=== PATIENT | male | born 1940 | race Caucasian/White ===

== ENCOUNTER 2017-08-12 21:51 | Observation (INO) | payer SELFPAY ==
[2017-08-12] MEDS ORDERED: NS 0.9% 1000 ML*IV.FLUID IV ONE (22:18)
[2017-08-12] MEDS ORDERED: Acetaminophen TAB* 325 MG PO ONE (22:18)
[2017-08-12] MEDS ORDERED: Vancomycin(*) 1,000 MG in NS 0.9% 250 ML* 250 ML IVPB ONE (22:38)
[2017-08-12] MEDS ORDERED: Piperacillin/Tazobac ADVAN(*) 3.375 GM in NS 0.9% 100 ML* 100 ML IVPB ONE (22:39)
[2017-08-12] MEDS ORDERED: NS 0.9% 100 ML* 100 ML ONE (23:19)
[2017-08-12 23:23] LABS: Hematocrit 42 % (42-52); Hemoglobin 14.4 g/dl (14.0-18.0); Mean Corpuscular HGB Conc 34 g/dl (31-36); Mean Corpuscular Hemoglobin 32 pg (27-31); Mean Corpuscular Volume 93 fL (80-94); Mean Platelet Volume 8 um3 (7.4-10.4); Red Blood Count 4.54 10^6/ul (4.0-5.4); Red Cell Distribution Width 14 % (10.5-15); White Blood Count 9.8 10^3/ul (3.5-10.8)
[2017-08-12 23:36] LABS: Albumin 3.6 g/dL (3.2-5.2); C Reactive Protein 61.86 mg/L (< 5.00); Calcium 8.5 mg/dL (8.6-10.3); EGFR African American 80.7 (>60); EGFR Non-African American 62.8 (>60); Potassium 3.9 mmol/L (3.5-5.0); Total Bilirubin 0.5 mg/dL (0.2-1.0); Total Protein 6.6 g/dL (6.4-8.9)
[2017-08-12 23:38] LABS: Troponin I 0.01 ng/mL (<0.04)
[2017-08-12] MEDS ORDERED: Levofloxacin 750 MG IVPREMIX(* 750 MG/150 ML BAG IVPB ONE (23:56)
[2017-08-13 00:02] LABS: Urine Bacteria Absent (Absent); Urine Bilirubin Negative (Negative); Urine Glucose Negative (Negative); Urine Nitrite Negative (Negative)
--- NOTE | 2017-08-13 00:38 | ED ---
Bell Arevalo Thomas, scribed for Jamar Fajardo MD on 08/12/17 at 2220 . HPI Febrile Illness - HPI Summary HPI Summary: The pt is a 77 y/o M presenting to the ED c/o generalized malaise, fever, body tingles, cough with brown sputum production, and urinary frequency for the last 3-4 days. The patients symptoms have been intermittent. Pt denies vomiting , diarrhea, CP, pleuritic CP, SOB, back pain, and any pains. The patient lives alone. - History of Current Complaint Chief Complaint: EDGeneral Time Seen by Provider: 08/12/17 22:10 Hx Obtained From: Patient Onset/Duration: Started Days Ago - 3-4, Still Present Timing: Intermittent Current Severity: Moderate Pain Intensity: 0 Pain Scale Used: 0-10 Numeric Aggravating Factors: Nothing Alleviating Factors: Nothing Associated Signs and Symptoms: Other: - Generalized malaise, fever, body tingles, cough with brown sputum production, and urinary frequency; NEGATIVE: vomiting, diarrhea, CP, pleuritic CP, SOB, back pain, and any pains - Allergy/Home Medications Allergies/Adverse Reactions: Allergies Allergy/AdvReac Type Severity Reaction Status Date / Time Aspirin [ASA] Allergy Unknown Unknown Verified 08/12/17 23:21 Reaction Details Penicillins Allergy Hives Verified 08/12/17 23:42 Sulfa Antibiotics Allergy Unknown Verified 08/12/17 23:21 Reaction Details Home Medications: Home Medications Atenolol TAB* [Tenormin TAB* 25 MG] 25 mg PO DAILY 08/13/17 [History] Carbidopa/Levodop 10/100 MG(*) [Sinemet 10/100 TAB(*)] 1 tab PO TID 08/13/17 [ History] Levothyroxine TAB* [Synthroid TAB*] 100 mcg PO DAILY 08/13/17 [History] Pramipexole TAB* [Mirapex TAB*] 0.125 mg PO BEDTIME 08/13/17 [History] Rivaroxaban TAB(*) [Xarelto 10 mg (*)] 10 mg PO DAILY 08/13/17 [History] Valsartan TAB* [Diovan TAB*] 08/13/17 [History] busPIRone TAB* [Buspar TAB*] 5 mg PO BID 08/13/17 [History] PMH/Surg Hx/FS Hx/Imm Hx Previously Healthy: No Endocrine/Hematology History: Denies: Hx Diabetes Cardiovascular History: Reports: Hx Hypertension Infectious Disease History: No Infectious Disease History: Denies: Traveled Outside the [place] in Last 30 Days - Family History Known Family History: Negative: Seizure Disorder - Social History Lives: Alone Alcohol Use: None Hx Substance Use: No Substance Use Type: Reports: None Review of Systems Positive: Fever, Other - Generalized malaise Negative: Chest Pain Positive: Cough. Negative: Shortness Of Breath, Other - pleuritic CP Negative: Vomiting, Diarrhea Positive: frequency Negative: Other - back pain, other pains Neurological: Other - "Body tingles" All Other Systems Reviewed And Are Negative: Yes Physical Exam - Summary Physical Exam Summary: VITAL SIGNS: Reviewed. GENERAL: Patient is a well-developed and nourished male who is lying comfortable in the stretcher. Patient is not in any acute respiratory distress. HEAD AND FACE: No signs of trauma. No ecchymosis, hematomas or skull depressions. No sinus tenderness. EYES: PERRLA, EOMI x 2, No injected conjunctiva, no nystagmus. EARS: Hearing grossly intact. Ear canals and tympanic membranes are within normal limits. MOUTH: Oropharynx within normal limits. NECK: Supple, trachea is midline, no adenopathy, no JVD, no carotid bruit, no c- spine tenderness, neck with full ROM. CHEST: Symmetric, no tenderness at palpation LUNGS: Clear to auscultation bilaterally. No wheezing or crackles. CVS: Regular rate and rhythm, S1 and S2 present, no murmurs or gallops appreciated. ABDOMEN: Soft, non-tender. No signs of distention. No rebound no guarding, and no masses palpated. Bowel sounds are normal. EXTREMITIES: FROM in all major joints, no edema, no cyanosis or clubbing. NEURO: Alert and oriented x 3. No acute neurological deficits. Speech is normal and follows commands. SKIN: Dry. His skin is flushed. Triage Information Reviewed: Yes Vital Signs On Initial Exam: Initial Vitals Temp Pulse Resp BP Pulse Ox 102.2 F 97 18 149/84 90 08/12/17 21:53 08/12/17 21:53 08/12/17 21:53 08/12/17 21:53 08/12/17 21:53 Vital Signs Reviewed: Yes Diagnostics - Vital Signs Vital Signs Temp Pulse Resp BP Pulse Ox 08/12/17 21:53 102.2 F 97 18 149/84 90 - Laboratory Result Diagrams: 08/12/17 23:00 08/12/17 23:00 Lab Statement: Any lab studies that have been ordered have been reviewed, and results considered in the medical decision making process. - Radiology CXR Xray Interpretation: No Acute Changes - Right basal infiltrate Radiology Interpretation Completed By: ED Physician - EKG 22:32 Cardiac Rate: NL EKG Rhythm: Sinus Rhythm EKG Interpretation: 86 BPM. Nml axis. Nml interval. Nonspecific T-wave changes inferior leads. Course/Dx - Course Assessment/Plan: The pt is a 77 y/o M presenting to the ED c/o generalized malaise, fever, body tingles, cough with brown sputum production, and urinary frequency for the last 3-4 days. The patients symptoms have been intermittent. Pt denies vomiting, diarrhea, CP, pleuritic CP, SOB, back pain, and any pains. The patient lives alone. In the ED course the patient was given acetaminophen, levofloxacin, IV fluids, vancomycin, and Zosyn. Bloodwork and EKG were obtained. CXR shows right basal infiltrate. Patient is diagnosed with pneumonia and admitted to the hospitalists. - Diagnoses Provider Diagnoses: Pneumonia - Provider Notifications Discussed Care Of Patient With: Frank Rodriges Time Discussed With Above Provider: 00:19 Instructed by Provider To: Admit As Inpatient Discharge - Discharge Plan Condition: Fair Disposition: ADMITTED TO [facility] Referrals: Harman Acosta MD [Primary Care Provider] - The documentation as recorded by the Bell sarabia Thomas accurately reflects the service I personally performed and the decisions made by , Jamar Fajardo MD.
[2017-08-13] MEDS ORDERED: Melatonin (NF) 3 MG TAB PO PRN (01:25)
[2017-08-13] MEDS ORDERED: Acetaminophen TAB* 325 MG PO PRN (01:25)
[2017-08-13] MEDS ORDERED: Albuterol 2.5 MG/3 ML NEB.SOL* (0.083%) INH PRN (01:25)
[2017-08-13] MEDS ORDERED: Ondansetron INJ* 2 MG/ML VIAL IV PRN (01:25)
[2017-08-13] MEDS ORDERED: NS 0.9% 1000 ML* 1,000 ML IV SCH (01:30)
[2017-08-13] MEDS ORDERED: Pramipexole TAB* 0.125 MG PO SCH (02:00)
[2017-08-13] MEDS ORDERED: Levothyroxine TAB* 100 MCG TAB PO SCH (06:00)
[2017-08-13] MEDS ORDERED: Omeprazole CAP* 20 MG PO SCH (06:00)
--- NOTE | 2017-08-13 06:52 | HP ---
H&P (Free Text) History and Physical: PCP: Inocente Acosta MD Date/Time: 08/13/2017 0110 CC: malaise HPI: Mr Han is a 77YO markedly [id number] male who denies significant medical history but is on medication for HTN, Parkinsonism, hypothyroidism, anxiety, as well as rivaroxaban for unknown reason who reports onset of malaise 4 days ago with fatigue, F/C, sweats, rigors, & mild diarrhea. He denies chest pain, cough, congestion, B/U/F of urine, abdominal pain, black/bloody stools, open wound, rash, or other issues. However, to EMS he reported cough with brown sputum. PMedHx Parkinsonism HTN hypothyroidism anxiety rivaroxaban for unknown reason (denies AFIB/irregular HR) Ambulatory Orders Atenolol TAB* [Tenormin TAB* 25 MG] 25 mg PO DAILY 08/13/17 Carbidopa/Levodop 10/100 MG(*) [Sinemet 10/100 TAB(*)] 1 tab PO TID 08/13/17 Levothyroxine TAB* [Synthroid TAB*] 100 mcg PO DAILY 08/13/17 Pramipexole TAB* [Mirapex TAB*] 0.125 mg PO BEDTIME 08/13/17 Rivaroxaban TAB(*) [Xarelto 10 mg (*)] 10 mg PO DAILY 08/13/17 Valsartan TAB* [Diovan TAB*] 08/13/17 busPIRone TAB* [Buspar TAB*] 5 mg PO BID 08/13/17 Allergies Aspirin [ASA] Allergy (Unknown, Verified 08/12/17 23:21) Unknown Reaction Details Penicillins Allergy (Verified 08/12/17 23:42) Hives Sulfa Antibiotics Allergy (Verified 08/12/17 23:21) Unknown Reaction Details PSurgHx OU cataract extraction appendectomy hernia repair SocHx: former smoker, denies alcohol & recreational drugs; lives alone with his cat; full code status FamHx: reviewed & non-contributory to presentation ROS: as above, otherwise reviewed and all were negative vitals: Vital Signs Temp 36.7 C 08/13/17 04:24 Pulse 67 08/13/17 04:24 Resp 20 08/13/17 04:24 BP 123/68 08/13/17 04:24 Pulse Ox 97 08/13/17 04:24 Intake & Output 08/12/17 08/12/17 08/13/17 11:59 23:59 11:59 Intake Total 2390 Output Total 100 Balance 2390 -100 Weight 71.214 kg 71.441 kg Intake: IV Fluids 2390 Output: Urine 100 Other: # Bowel Movements 0 Constitutional: NAD, normally developed, well-nourished, acutely ill appearing elderly white male HEENM: atraumatic; sclera/conjunctiva: anicteric/mildly injected OU; hearing: markedly hard of hearing; oropharynx: clear, mucosa tacky Neck: soft tissue: no nuchal rigidity; thyroid: normal, non-tender Pulmonary: coarse crackles R>L base, fair aeration, no accessory muscle use CV: RR/RR, normal S1S2, no carotid bruit, no jugular venous distention, 2+ B DP/ PT, no edema Abdominal: soft, non-distended, non-tender, no rebound/guarding/rigidity, normoactive bowel sounds, no hepatosplenomegaly or masses, no costovertebral angle tenderness Musculoskeletal: general: grossly intact, no palpable tenderness Integumental: normal appearance and texture of exposed skin Psychiatric orientation: AA&O to PPS affect: calm mood: cooperative eye contact: fair to good content: unreliable most likely 2nd being markedly [id number] despite having [employer] hearing aides in place responses: timely insight: fair Testing: Lab Results 08/12/17 08/12/17 08/12/17 Range/Units 23:00 23:00 23:00 WBC 9.8 (3.5-10.8) 10^3/ul RBC 4.54 (4.0-5.4) 10^6/ul Hgb 14.4 (14.0-18.0) g/dl Hct 42 (42-52) % MCV 93 (80-94) fL MCH 32 H (27-31) pg MCHC 34 (31-36) g/dl RDW 14 (10.5-15) % Plt Count 148 L (150-450) 10^3/ul MPV 8 (7.4-10.4) um3 Neut % (Auto) 76.4 (38-83) % Lymph % (Auto) 16.2 L (25-47) % [place] % (Auto) 6.4 (1-9) % Eos % (Auto) 0.1 (0-6) % Baso % (Auto) 0.9 (0-2) % Absolute Neuts (auto) 7.5 (1.5-7.7) 10^3/ul Absolute Lymphs (auto) 1.6 (1.0-4.8) 10^3/ul Absolute Monos (auto) 0.6 (0-0.8) 10^3/ul Absolute Eos (auto) 0 (0-0.6) 10^3/ul Absolute Basos (auto) 0.1 (0-0.2) 10^3/ul Absolute Nucleated RBC 0.01 10^3/ul Nucleated RBC % 0.1 INR (Anticoag Therapy) 1.06 (0.89-1.11) APTT 30.6 (26.0-36.3) seconds Sodium 135 (133-145) mmol/L Potassium 3.9 (3.5-5.0) mmol/L Chloride 104 (101-111) mmol/L Carbon Dioxide 23 (22-32) mmol/L Anion Gap 8 (2-11) mmol/L BUN 26 H (6-24) mg/dL Creatinine 1.13 (0.67-1.17) mg/dL Est GFR ( Amer) 80.7 (>60) Est GFR (Non-Af Amer) 62.8 (>60) BUN/Creatinine Ratio 23.0 H (8-20) Glucose 107 H (70-100) mg/dL Lactic Acid (0.5-2.0) mmol/L Calcium 8.5 L (8.6-10.3) mg/dL Total Bilirubin 0.50 (0.2-1.0) mg/dL AST 17 (13-39) U/L ALT 21 (7-52) U/L Alkaline Phosphatase 71 (34-104) U/L Total Creatine Kinase 38 (10-223) U/L Troponin I 0.01 (<0.04) ng/mL C-Reactive Protein 61.86 H (< 5.00) mg/L Total Protein 6.6 (6.4-8.9) g/dL Albumin 3.6 (3.2-5.2) g/dL Globulin 3.0 (2-4) g/dL Albumin/Globulin Ratio 1.2 (1-3) Urine Color Urine Appearance Urine pH (5-9) Ur Specific [place] (1.010-1.030) Urine Protein (Negative) Urine Ketones (Negative) Urine Blood (Negative) Urine Nitrate (Negative) Urine Bilirubin (Negative) Urine Urobilinogen (Negative) Ur Leukocyte Esterase (Negative) Urine WBC (Auto) (Absent) Urine RBC (Auto) (Absent) Urine Bacteria (Absent) Urine Glucose (Negative) Urine Ascorbic Acid (Negative) Influenza A (Rapid) (Negative) Influenza B (Rapid) (Negative) 08/12/17 08/12/17 08/13/17 Range/Units 23:00 23:53 02:39 WBC (3.5-10.8) 10^3/ul RBC (4.0-5.4) 10^6/ul Hgb (14.0-18.0) g/dl Hct (42-52) % MCV (80-94) fL MCH (27-31) pg MCHC (31-36) g/dl RDW (10.5-15) % Plt Count (150-450) 10^3/ul MPV (7.4-10.4) um3 Neut % (Auto) (38-83) % Lymph % (Auto) (25-47) % [place] % (Auto) (1-9) % Eos % (Auto) (0-6) % Baso % (Auto) (0-2) % Absolute Neuts (auto) (1.5-7.7) 10^3/ul Absolute Lymphs (auto) (1.0-4.8) 10^3/ul Absolute Monos (auto) (0-0.8) 10^3/ul Absolute Eos (auto) (0-0.6) 10^3/ul Absolute Basos (auto) (0-0.2) 10^3/ul Absolute Nucleated RBC 10^3/ul Nucleated RBC % INR (Anticoag Therapy) (0.89-1.11) APTT (26.0-36.3) seconds Sodium (133-145) mmol/L Potassium (3.5-5.0) mmol/L Chloride (101-111) mmol/L Carbon Dioxide (22-32) mmol/L Anion Gap (2-11) mmol/L BUN (6-24) mg/dL Creatinine (0.67-1.17) mg/dL Est GFR ( Amer) (>60) Est GFR (Non-Af Amer) (>60) BUN/Creatinine Ratio (8-20) Glucose (70-100) mg/dL Lactic Acid 0.9 (0.5-2.0) mmol/L Calcium (8.6-10.3) mg/dL Total Bilirubin (0.2-1.0) mg/dL AST (13-39) U/L ALT (7-52) U/L Alkaline Phosphatase (34-104) U/L Total Creatine Kinase (10-223) U/L Troponin I (<0.04) ng/mL C-Reactive Protein (< 5.00) mg/L Total Protein (6.4-8.9) g/dL Albumin (3.2-5.2) g/dL Globulin (2-4) g/dL Albumin/Globulin Ratio (1-3) Urine Color Yellow Urine Appearance Clear Urine pH 5.0 (5-9) Ur Specific [place] 1.024 (1.010-1.030) Urine Protein 1+(30 mg/dl) H (Negative) Urine Ketones Trace H (Negative) Urine Blood Negative (Negative) Urine Nitrate Negative (Negative) Urine Bilirubin Negative (Negative) Urine Urobilinogen Negative (Negative) Ur Leukocyte Esterase Negative (Negative) Urine WBC (Auto) Trace(0-5/hpf) (Absent) Urine RBC (Auto) 1+(3-5/hpf) H (Absent) Urine Bacteria Absent (Absent) Urine Glucose Negative (Negative) Urine Ascorbic Acid * H (Negative) Influenza A (Rapid) Negative (Negative) Influenza B (Rapid) Negative (Negative) ECG, personally reviewed: sinus RBBB rate 86, no ischemia CXR, personally reviewed: R pericardial infiltrate Impression: 77M presenting with 4 days of fatigue, malaise, F/C, sweats/rigors and finding of RML pneumonia on CXR DIAGNOSIS & PLAN Primary RML CAP : given vancomycin, piperacill/tazobactam, & levofloxacin in ED; will continue with levofloxacin only : IVFs : sputum & blood CXs : supplemental oxygen : incentive spirometry : guaifenesin : supportive care Secondary Parkinsonism : continue carbi/levodopa & pramipexole HTN : continue valsartan & atenolol hypothyroidism : continue levothyroxine anxietycontinue buspirone anticoagulation for uncertain reason : continue rivaroxaban : records from PCP requested Admission Rational: inpatient for CAP in patient at high risk for rapid/ terminal decompensation; inappropriate for outpatient setting DVTp: rivaroxaban Code Status: full HCP: Yvan bautista
[2017-08-13 07:07] LABS: Hematocrit 40 % (42-52); Hemoglobin 13.4 g/dl (14.0-18.0); Mean Corpuscular HGB Conc 33 g/dl (31-36); Mean Corpuscular Hemoglobin 31 pg (27-31); Mean Corpuscular Volume 94 fL (80-94); Mean Platelet Volume 8 um3 (7.4-10.4); Red Blood Count 4.29 10^6/ul (4.0-5.4); Red Cell Distribution Width 14 % (10.5-15); White Blood Count 7.6 10^3/ul (3.5-10.8)
[2017-08-13 07:23] LABS: BUN/Creatinine Ratio 22.3 (8-20); EGFR African American 89.8 (>60); EGFR Non-African American 69.8 (>60)
[2017-08-13] MEDS: Carbidopa/Levodop 10/100 MG TAB(*) PO SCH ×2 (07:32→14:06)
--- NOTE | 2017-08-13 08:01 | RAD ---
Indication: Brown sputum. General malaise. Comparison: No relevant prior exams available on the [facility] PACS for comparison. Technique: Upright AP 2241 hours Report: Mild alveolar consolidation at the medial RIGHT lung base likely involving the RIGHT lower lobe given preservation of the RIGHT heart margin. Negative for pleural effusion or pneumothorax. Negative for cardiomegaly. Unremarkable central pulmonary vasculature. Mildly tortuous descending thoracic aorta. IMPRESSION: Probable inflammatory infiltrate at the medial RIGHT lung base.
[2017-08-13 08:07] LABS: Potassium 4.3 mmol/L (3.5-5.0)
[2017-08-13] MEDS ORDERED: busPIRone TAB* 5 MG PO SCH (09:00)
[2017-08-13] MEDS ORDERED: guaiFENesin ER TAB 600 MG PO SCH (09:00)
[2017-08-13] MEDS ORDERED: Atenolol TAB* 25 MG PO SCH (09:00)
[2017-08-13] MEDS ORDERED: Valsartan TAB* 40 MG PO SCH (09:00)
[2017-08-13] MEDS ORDERED: Docusate CAP* 100 MG PO SCH (09:00)
[2017-08-13] MEDS ORDERED: Rivaroxaban TAB(*) 10 MG PO SCH (09:00)
[2017-08-13 15:41] VITALS: BP 136/70
[2017-08-14] MEDS ORDERED: Levofloxacin 750 MG IVPREMIX(* 750 MG/150 ML BAG IVPB SCH (04:00)
--- NOTE | 2017-08-14 09:09 | DS ---
CC: Harman Acosta MD * DISCHARGE SUMMARY: DATE OF ADMISSION: 08/13/17 DATE OF DISCHARGE TO HOSPICE: 08/13/17 ADMISSION DIAGNOSES: Right middle lobe pneumonia, hypertension, hypothyroidism , anxiety. DISCHARGE DIAGNOSES: Right middle lobe pneumonia, hypertension, hypothyroidism , anxiety. HOSPITAL COURSE: The patient is a 77-year-old gentleman who presented to [facility] with a chief complaint of malaise. Please see H and P for further details. The patient was found to have right middle lobe pneumonia. The patient was started on Levaquin. The patient turned dramatically in the next 24 hours. By the time of discharge, the patient was feeling weak, but considerably improved and anxious to go home. The patient will be continued on Levaquin as an outpatient. He had no fever and no white count. He was oxygenating at 98% on room air. PHYSICAL EXAMINATION: On the date of discharge, elderly gentleman sitting up in bed, in no acute distress. Vital Signs: Temperature 97.4 degrees, heart rate 64 beats per minute, respiratory rate 16 breaths per minute, pulse ox 99%, blood pressure 146/71. HEENT: Normocephalic, atraumatic. Pupils are equal, round, and reactive to light. Moist mucous membranes. Neck: Supple. No JVD, bruits, palpable thyroid, or lymphadenopathy. Chest: Clear to auscultation and percussion bilaterally. Cardiovascular Exam: S1 and S2 appreciated. Regular rate and rhythm. Abdominal Exam: Positive bowel sounds in all four quadrants. Soft, nontender, nondistended. Extremities: No cyanosis, clubbing , or edema. +2 pulses bilaterally. Neuro: Alert and oriented x3. Moves all extremities. Skin: No rashes or abnormalities. STUDIES WHILE IN THE HOSPITAL: Chest x-ray on 08/12/17 probably inflammatory change in the medial right lung base. DISCHARGE MEDICATIONS: 1. Xalatan 1 drop both eyes in the evening. 2. Flonase nasal spray 2 sprays both nares daily. 3. Levothyroxine 75 mcg daily. 4. Sinemet 10/100 one tab 3 times a day. 5. Atenolol 50 mg daily. 6. Valsartan 180 mg daily. 7. Xarelto 20 mg daily. 8. Mirapex 0.125 mg at bedtime. 9. Buspirone 5 mg twice daily. 10. Levaquin 75 mg daily for 4 more days. DISCHARGE PLAN: The patient is to be discharged home. He is to follow up with his PCP within one week. The patient should return to the ED if symptoms should recur. TIME SPENT: Over 35 minutes was spent on this discharge, more than 25 minutes of which was spent in direct [id number] contact with the patient in evaluation , physical exam, counseling, and coordination of care. [id number]/[facility] #: [id number] TARAH
== END 2017-08-13 17:10 | disposition home or self-care (01) ==
LOC: ED 21:51 → INTOOBSV 08-13 01:22 → MED 08-13 01:22
PROVIDERS: ADMIT Hospitalist; ATTEND Internal Medicine
DX: J18.9 Pneumonia, unspecified organism (principal); I10 Essential (primary) hypertension; E03.9 Hypothyroidism, unspecified; F41.9 Anxiety disorder, unspecified; Z79.01 Long term (current) use of anticoagulants; Z79.899 Other long term (current) drug therapy; Z88.0 Allergy status to penicillin; Z88.2 Allergy status to sulfonamides; Z87.891 Personal history of nicotine dependence; I45.2 Bifascicular block
CPT/HCPCS: 36415; 71010; 80048; 80053; 81003; 81015; 82550; 83605; 84484; 85025; 85027; 85610; 85730; 86140; 87040; 87502; 87899; 93005; 96365; 96375; 99284; A9270-GY; G0378; J2543; J3370